=== PATIENT | male | born 1995 | race Caucasian/White ===

== ENCOUNTER 2020-01-20 12:56 | Observation (INO) | payer BC ==
[2020-01-20] MEDS ORDERED: Zofran 4 MG/2 ML VIAL IV ONE (13:29)
[2020-01-20] MEDS ORDERED: PROTONIX 40 MG IV IV ONE ×2 (13:29→13:42)
[2020-01-20] MEDS ORDERED: Sodium Chloride 0.9% 1000 ML 1,000 ML IV STA (13:29)
[2020-01-20] MEDS ORDERED: Hydromorphone 1 mg/ml Ampule IV ONE ×2 (13:29→15:18)
[2020-01-20] MEDS ORDERED: Hydromorphone 1 mg/ml Ampule ONE ×2 (13:42→15:24)
[2020-01-20] MEDS ORDERED: Zofran 4 MG/2 ML VIAL ONE ×2 (13:42→19:37)
[2020-01-20] MEDS ORDERED: Sodium Chloride 0.9% 1000 ML 1,000 ML ONE (13:43)
[2020-01-20 13:45] LABS: Absolute Neutrophil Ct (ANC) 12.05 (1.4-6.9); BASOPHIL % 0.2 % (0.0-0.4); Basophil (Absolute #) 0.04 (0-0.4); Eosinophil % 8.1 % (0.00-5.0); Hematocrit 45.3 % (42-50); Hemoglobin 15.6 gm/dl (12.5-18.0); Lymphocyte (Absolute #) 1.36 (1.0-4.6); Lymphocytes % 8.5 % (24.0-44.0); Mean Cell Volume 88.6 fl (78-100); Mean Corpuscular Hemoglobin 30.5 pg (26-32); Mean Corpuscular Hgb Concent. 34.4 g/dl (32-36); Mean Platelet Volume 9.7 fl (7.5-11.0); Monocyte (Absolute #) 1.28 (0.0-1.3); Neutrophil % 75.2 % (36.0-66.0); Platelet Count 239 K/mm3 (150-450); Red Blood Count 5.11 M/mm3 (4.1-5.6); Red Cell Distribution Width 12.9 % (11.5-14.0)
[2020-01-20 13:57] LABS: ALBUMIN 4.5 g/dL (3.5-5.0); ALKALINE PHOSPHATASE 85 U/L (38-126); AMYLASE 70 U/L (30-110); ANION GAP 12.1 MEQ/L (5-15); BLOOD UREA NITROGEN 13 mg/dL (9-20); CHLORIDE 103 mmol/L (98-107); Calcium 9.5 mg/dL (8.4-10.2); Carbon Dioxide 27 mmol/L (22-30); Creatinine 1 0.77 mg/dL (0.66-1.25); Glucose 108 mg/dL (74-106); LIPASE 18 U/L (23-300); Potassium 4.3 mmol/L (3.5-5.1); SGOT/AST 25 U/L (17-59); SGPT/ALT 28 U/L (0-50); SODIUM 138 mmol/L (137-145); Total Protein 8.2 g/dL (6.3-8.2)
[2020-01-20 14:01] LABS: Appearance CLEAR (CLEAR); Bilirubin NEGATIVE (NEGATIVE); Blood NEGATIVE Ery/ul (0-5); Glucose NEGATIVE (NEGATIVE); Ketones NEGATIVE (NEGATIVE); Leukocyte Esterase NEGATIVE (NEGATIVE); Mucus SLIGHT /HPF (NEGATIVE); Nitrite NEGATIVE (NEGATIVE); Protein,Urine Dip NEGATIVE (Negative); Specific Gravity 1.021 (1.005-1.025); Urobilinogen NEGATIVE mg/dL (0-1)
--- NOTE | 2020-01-20 14:16 | XRAY ---
Indication: Chest pain. Comparison: None Portable apical lordotic chest again demonstrates normal heart, lungs, and bony thorax.
--- NOTE | 2020-01-20 15:12 | XRAY ---
Indication: Periumbilical pain. Multiple contiguous axial images obtained through the abdomen and pelvis using 80 cc Isovue 370 contrast only. Comparison: None Lung bases are clear. Heart is not enlarged. Stomach is distended with food/fluid. Noncontrasted stomach and bowel loops appear nonobstructed. Abnormal enlarged appendix up to 14 mm diameter with periappendiceal stranding and tiny free fluid favoring acute appendicitis. There is a 9 mm appendicolith near the base of the appendix. No free air. Remaining liver, gallbladder, pancreas, spleen, adrenal glands, kidneys, ureters, bladder, and aorta appear unremarkable. No pathologic retroperitoneal lymphadenopathy. Osseous structures intact. Impression: CT findings as detailed favoring acute appendicitis with appendicolith.
[2020-01-20] MEDS ORDERED: MEFOXIN 1 Gm/ D5W 50 Ml** 1 G/50 ML ML IV STA (15:47)
[2020-01-20] MEDS ORDERED: Hydromorphone 1 mg/ml Ampule IV PRN (16:06)
--- NOTE | 2020-01-20 16:06 | ERPHSYRPT ---
- History of Present Illness Patient Subjective Stated Complaint: " My right side of belly has been hurting so bad since 0700 this morning, it's a sharp stabbing pain and radiates down into my abdomen ". Triage Nursing Assessment: Pt presents to ER with complaints of severe Right sided abdominal pain, mostly in the mid section but radiates to RLQ. Pt denies nausea, states did make himself vomit earlier to try to see if that would help with the pain. He states it didn't help. Pt is alert and oriented x 3. Appears in obvious distress. Pt skin is pink, warm, and dry. Pupils PERRL. Lungs clear and equal throughout. Denies shortness of breath or cough. Abd very tender upon examination, positive mcburneys point. Very tender. MD notified. Denies constipation/diarrhea. Denies painful urination. States pain started suddenly this morning at approx 7am. Physician History: Patient is a 24-year-old male who awoke this morning at 7 AM with right lower quadrant abdominal pain this has persisted and gotten worse it hurts with movement he denies any fever chills sweats he has vomited once. Timing/Duration: today Activities at Onset: none Quality: stabbing Abdominal Pain Onset Location: RLQ Severity of Pain-Max: moderate Severity of Pain-Current: moderate Modifying Factors: Improves With: coughing, movement Associated Symptoms: nausea, vomiting Previous symptoms: no prior history Allergies/Adverse Reactions: Penicillins Allergy (Severe, Verified 01/20/20 13:23) Hx Tetanus, Diphtheria Vaccination/Date Given: Yes Hx Influenza Vaccination/Date Given: Yes Hx Pneumococcal Vaccination/Date Given: No Travel Risk - International Travel Have you traveled outside of the country in past 3 weeks: No - Coronavirus Screening Are you exhibiting any of the following symptoms?: No Close contact with a COVID-19 positive Pt in past 14-21 Days: No - Review of Systems Constitutional: No Fever, No Chills Eyes: No Symptoms Ears, Nose, & Throat: No Symptoms Respiratory: No Cough, No Dyspnea Cardiac: No Chest Pain, No Edema, No Syncope Abdominal/Gastrointestinal: No Abdominal Pain, No Nausea, No Vomiting, No Diarrhea Genitourinary Symptoms: No Dysuria Musculoskeletal: No Back Pain, No Neck Pain Skin: No Rash Neurological: No Dizziness, No Focal Weakness, No Sensory Changes Psychological: No Symptoms Endocrine: No Symptoms All Other Systems: Reviewed and Negative - Past Medical History Pertinent Past Medical History: No - Past Surgical History Past Surgical History: Yes Gastrointestinal: Hernia Repair - Social History Smoking Status: Never smoker Exposure to second hand smoke: No Drug Use: none Patient Lives Alone: Yes - Nursing Vital Signs Nursing Vital Signs: Initial Vital Signs Temperature 97.8 F 01/20/20 13:22 Pulse Rate 77 01/20/20 13:22 Respiratory Rate 20 01/20/20 13:22 O2 Sat by Pulse Oximetry 99 01/20/20 13:22 Pain Scale Pain Intensity 10 - Physical Exam General Appearance: mild distress, alert Eye Exam: PERRL/EOMI, eyes nml inspection Ears, Nose, Throat Exam: normal ENT inspection, pharynx normal, moist mucous membranes Neck Exam: normal inspection, non-tender, supple, full range of motion Respiratory Exam: normal breath sounds, lungs clear, No respiratory distress Cardiovascular Exam: regular rate/rhythm, normal heart sounds Gastrointestinal/Abdomen Exam: tenderness, mass, guarding, rebound Back Exam: normal inspection, normal range of motion, No CVA tenderness, No vertebral tenderness Extremity Exam: normal inspection, normal range of motion, pelvis stable Neurologic Exam: alert, oriented x 3, cooperative, normal mood/affect, nml cerebellar function, sensation nml, No motor deficits Skin Exam: normal color, warm, dry SpO2: 96 - Course Nursing assessment & vital signs reviewed: Yes - CT Exams Abdomen/Pelvis CT Interpretation: Other (Consistent with appendicitis) Ordered Tests: Active Orders 24 hr Category Date Time Status IV Insertion STAT Care 01/20/20 13:29 Active ABDOMEN AND PELVIS W CONTRAST [CT] Stat Exams 01/20/20 13:30 Completed CHEST 1 VIEW (PORTABLE) Stat Exams 01/20/20 14:08 Completed AMYLASE Stat Lab 01/20/20 13:30 Completed CBC W DIFF Stat Lab 01/20/20 13:30 Completed CMP Stat Lab 01/20/20 13:30 Completed LIPASE Stat Lab 01/20/20 13:30 Completed Lactic Acid Stat Lab 01/20/20 13:29 Completed UA W/RFX UR CULTURE Stat Lab 01/20/20 Completed Medication Summary Generic Name Dose Route Start Last Admin Trade Name Freq PRN Reason Stop Dose Admin Cefoxitin Sodium 1 g in 50 mls @ 100 mls/hr 01/20/20 15:47 Mefoxin 1 Gm/ D5w 50 Ml IV 01/20/20 16:16 STAT STA Discontinued Medications Generic Name Dose Route Start Last Admin Trade Name Concepcion PRN Reason Stop Dose Admin Hydromorphone HCl 1 mg 01/20/20 13:29 01/20/20 13:48 Hydromorphone 1 Mg/Ml Ampule IV 01/20/20 13:30 1 mg STAT ONE Administration Hydromorphone HCl Confirm 01/20/20 13:42 Hydromorphone 1 Mg/Ml Ampule Administered 01/20/20 13:43 Dose 1 mg .ROUTE .STK-MED ONE Hydromorphone HCl 1 mg 01/20/20 15:18 01/20/20 15:27 Hydromorphone 1 Mg/Ml Ampule IV 01/20/20 15:19 1 mg STAT ONE Administration Hydromorphone HCl Confirm 01/20/20 15:24 Hydromorphone 1 Mg/Ml Ampule Administered 01/20/20 15:25 Dose 1 mg .ROUTE .STK-MED ONE Sodium Chloride 1,000 mls @ 999 mls/hr 01/20/20 13:29 01/20/20 15:01 Sodium Chloride 0.9% 1000 Ml IV 01/20/20 14:29 Infused .Q1H1M STA Infusion Sodium Chloride Confirm 01/20/20 13:43 Sodium Chloride 0.9% 1000 Ml Administered 01/20/20 13:44 Dose 1,000 mls @ ud .ROUTE .STK-MED ONE Ondansetron HCl 4 mg 01/20/20 13:29 01/20/20 13:48 Zofran 4 Mg/2 Ml Vial IV 01/20/20 13:30 4 mg STAT ONE Administration Ondansetron HCl Confirm 01/20/20 13:42 Zofran 4 Mg/2 Ml Vial Administered 01/20/20 13:43 Dose 4 mg .ROUTE .STK-MED ONE Pantoprazole Sodium 40 mg 01/20/20 13:29 01/20/20 13:48 Protonix 40 Mg Iv IV 01/20/20 13:30 40 mg STAT ONE Administration Pantoprazole Sodium Confirm 01/20/20 13:42 Protonix 40 Mg Iv Administered 01/20/20 13:43 Dose 40 mg IV .STK-MED ONE Lab/Rad Data: Laboratory Result Diagrams 01/20/20 13:30 01/20/20 13:30 Laboratory Results 01/20/20 01/20/20 01/20/20 Range/Units Unknown 13:30 13:30 WBC 16.0 H (4.0-10.5) K/mm3 RBC 5.11 (4.1-5.6) M/mm3 Hgb 15.6 (12.5-18.0) gm/dl Hct 45.3 (42-50) % MCV 88.6 (78-100) fl MCH 30.5 (26-32) pg MCHC 34.4 (32-36) g/dl RDW 12.9 (11.5-14.0) % Plt Count 239 (150-450) K/mm3 MPV 9.7 (7.5-11.0) fl Gran % 75.2 H (36.0-66.0) % Eos # (Auto) 1.30 H (0-0.5) Absolute Lymphs (auto) 1.36 (1.0-4.6) Absolute Monos (auto) 1.28 (0.0-1.3) Lymphocytes % 8.5 L (24.0-44.0) % Monocytes % 8.0 (0.0-12.0) % Eosinophils % 8.1 H (0.00-5.0) % Basophils % 0.2 (0.0-0.4) % Absolute Granulocytes 12.05 H (1.4-6.9) Basophils # 0.04 (0-0.4) Sodium 138 (137-145) mmol/L Potassium 4.3 (3.5-5.1) mmol/L Chloride 103 (98-107) mmol/L Carbon Dioxide 27 (22-30) mmol/L Anion Gap 12.1 (5-15) MEQ/L BUN 13 (9-20) mg/dL Creatinine 0.77 (0.66-1.25) mg/dL Estimated GFR > 60.0 ML/MIN Glucose 108 H (74-106) mg/dL Lactic Acid (0.4-2.0) Calcium 9.5 (8.4-10.2) mg/dL Total Bilirubin 1.30 (0.2-1.3) mg/dL AST 25 (17-59) U/L ALT 28 (0-50) U/L Alkaline Phosphatase 85 (38-126) U/L Serum Total Protein 8.2 (6.3-8.2) g/dL Albumin 4.5 (3.5-5.0) g/dL Amylase 70 (30-110) U/L Lipase 18 L (23-300) U/L Urine Color YELLOW (YELLOW) Urine Appearance CLEAR (CLEAR) Urine pH 6.0 (5-6) Ur Specific Sanderson 1.021 (1.005-1.025) Urine Protein NEGATIVE (Negative) Urine Ketones NEGATIVE (NEGATIVE) Urine Blood NEGATIVE (0-5) Michel/ul Urine Nitrite NEGATIVE (NEGATIVE) Urine Bilirubin NEGATIVE (NEGATIVE) Urine Urobilinogen NEGATIVE (0-1) mg/dL Ur Leukocyte Esterase NEGATIVE (NEGATIVE) Urine WBC (Auto) NONE (0-5) /HPF Urine RBC (Auto) NONE (0-2) /HPF U Epithel Cells (Auto) NONE (FEW) /HPF Urine Bacteria (Auto) NONE (NEGATIVE) /HPF Urine Mucus (Auto) SLIGHT (NEGATIVE) /HPF Urine Culture Reflexed NO (NO) Urine Glucose NEGATIVE (NEGATIVE) mg/dL 01/20/20 Range/Units 13:29 WBC (4.0-10.5) K/mm3 RBC (4.1-5.6) M/mm3 Hgb (12.5-18.0) gm/dl Hct (42-50) % MCV (78-100) fl MCH (26-32) pg MCHC (32-36) g/dl RDW (11.5-14.0) % Plt Count (150-450) K/mm3 MPV (7.5-11.0) fl Gran % (36.0-66.0) % Eos # (Auto) (0-0.5) Absolute Lymphs (auto) (1.0-4.6) Absolute Monos (auto) (0.0-1.3) Lymphocytes % (24.0-44.0) % Monocytes % (0.0-12.0) % Eosinophils % (0.00-5.0) % Basophils % (0.0-0.4) % Absolute Granulocytes (1.4-6.9) Basophils # (0-0.4) Sodium (137-145) mmol/L Potassium (3.5-5.1) mmol/L Chloride (98-107) mmol/L Carbon Dioxide (22-30) mmol/L Anion Gap (5-15) MEQ/L BUN (9-20) mg/dL Creatinine (0.66-1.25) mg/dL Estimated GFR ML/MIN Glucose (74-106) mg/dL Lactic Acid 1.4 (0.4-2.0) Calcium (8.4-10.2) mg/dL Total Bilirubin (0.2-1.3) mg/dL AST (17-59) U/L ALT (0-50) U/L Alkaline Phosphatase (38-126) U/L Serum Total Protein (6.3-8.2) g/dL Albumin (3.5-5.0) g/dL Amylase (30-110) U/L Lipase (23-300) U/L Urine Color (YELLOW) Urine Appearance (CLEAR) Urine pH (5-6) Ur Specific Sanderson (1.005-1.025) Urine Protein (Negative) Urine Ketones (NEGATIVE) Urine Blood (0-5) Michel/ul Urine Nitrite (NEGATIVE) Urine Bilirubin (NEGATIVE) Urine Urobilinogen (0-1) mg/dL Ur Leukocyte Esterase (NEGATIVE) Urine WBC (Auto) (0-5) /HPF Urine RBC (Auto) (0-2) /HPF U Epithel Cells (Auto) (FEW) /HPF Urine Bacteria (Auto) (NEGATIVE) /HPF Urine Mucus (Auto) (NEGATIVE) /HPF Urine Culture Reflexed (NO) Urine Glucose (NEGATIVE) mg/dL - Progress Progress: unchanged - Departure Departure Disposition: Observation Clinical Impression: Appendicitis Condition: Stable Critical Care Time: No Referrals: LISA NAIK [Primary Care Provider] -
[2020-01-20] MEDS: Sodium Chloride 0.9% 1000 ML 1,000 ML IV SCH ×2 (16:37→22:20)
[2020-01-20] MEDS ORDERED: Lactated Ringers 1,000 ML IV ONE ×3 (18:18→21:19)
[2020-01-20] MEDS ORDERED: Lactated Ringers 1,000 ML IV SCH (18:30)
--- NOTE | 2020-01-20 19:28 | PCM.HP ---
History of Present Illness - Chief Complaint Chief Complaint: appendicitis History of Present Illness: Hx per chart review and d/w patient. acute rlq abdominal pains tarting at 7am this am. constant. sharp severe. nothing like this before. "Patient Subjective Stated Complaint: " My right side of belly has been hurting so bad since 0700 this morning, it's a sharp stabbing pain and radiates down into my abdomen ". Triage Nursing Assessment: Pt presents to ER with complaints of severe Right sided abdominal pain, mostly in the mid section but radiates to RLQ. Pt denies nausea, states did make himself vomit earlier to try to see if that would help with the pain. He states it didn't help. Pt is alert and oriented x 3. Appears in obvious distress. Pt skin is pink, warm, and dry. Pupils PERRL. Lungs clear and equal throughout. Denies shortness of breath or cough. Abd very tender upon examination, positive mcburneys point. Very tender. MD notified. Denies constipation/diarrhea. Denies painful urination. States pain started suddenly this morning at approx 7am. Physician History: Patient is a 24-year-old male who awoke this morning at 7 AM with right lower quadrant abdominal pain this has persisted and gotten worse it hurts with movement he denies any fever chills sweats he has vomited once. Timing/Duration: today Activities at Onset: none Quality: stabbing Abdominal Pain Onset Location: RLQ Severity of Pain-Max: moderate Severity of Pain-Current: moderate Modifying Factors: Improves With: coughing, movement Associated Symptoms: nausea, vomiting Previous symptoms: no prior history Allergies/Adverse Reactions: Penicillins Allergy (Severe, Verified 01/20/20 13:23) Hx Tetanus, Diphtheria Vaccination/Date Given: Yes Hx Influenza Vaccination/Date Given: Yes Hx Pneumococcal Vaccination/Date Given: No Travel Risk - International Travel Have you traveled outside of the country in past 3 weeks: No - Coronavirus Screening Are you exhibiting any of the following symptoms?: No Close contact with a COVID-19 positive Pt in past 14-21 Days: No - Review of Systems Constitutional: No Fever, No Chills Eyes: No Symptoms Ears, Nose, & Throat: No Symptoms Respiratory: No Cough, No Dyspnea Cardiac: No Chest Pain, No Edema, No Syncope Abdominal/Gastrointestinal: No Abdominal Pain, No Nausea, No Vomiting, No Diarrhea Genitourinary Symptoms: No Dysuria Musculoskeletal: No Back Pain, No Neck Pain Skin: No Rash Neurological: No Dizziness, No Focal Weakness, No Sensory Changes Psychological: No Symptoms Endocrine: No Symptoms All Other Systems: Reviewed and Negative - Past Medical History Pertinent Past Medical History: No - Past Surgical History Past Surgical History: Yes Gastrointestinal: Hernia Repair - Social History Smoking Status: Never smoker Exposure to second hand smoke: No Drug Use: none Patient Lives Alone: Yes " Medications & Allergies Home Medications: Home Medication List Hydrocodone/APAP 5-325 Tab^^^ [Isabella 5-325 Tablet^^^] 1 tab PO Q6HPRN PRN MDD 6 01/20/20 [History Confirmed 01/20/20] Allergies/Adverse Reactions: Allergies Allergy/AdvReac Type Severity Reaction Status Date / Time Penicillins Allergy Severe Verified 01/20/20 13:23 - Past Medical History Past Medical History: No - Past Surgical History Past Surgical History: Yes GI Surgical History: Hernia Repair - Social History Smoking Status: Never smoker Exposure to second hand smoke: Yes Alcohol: None Drug Use: none - Physical Exam Vital Signs: Vital Signs - 24 hr Temp Pulse Resp BP BP Pulse Ox 01/20/20 18:35 103.4 F 133/74 01/20/20 18:16 99.8 F 118 H 24 133/74 01/20/20 17:00 99.8 F 118 H 24 133/74 01/20/20 16:30 89 22 136/72 99 01/20/20 16:05 96 01/20/20 14:02 69 18 147/82 96 01/20/20 13:22 97.8 F 77 20 99 General Appearance: no apparent distress, No mild distress, No alert Neurologic Exam: alert, oriented x 3 Eye Exam: eyes nml inspection, No scleral icterus Ears, Nose, Throat Exam: moist mucous membranes Neck Exam: normal inspection Respiratory Exam: No respiratory distress, No accessory muscle use Cardiovascular Exam: regular rate/rhythm, No capillary refill <2 sec Gastrointestinal/Abdomen Exam: soft, tenderness (ttp rlq with localized guarding and rebound.), No mass, No hepatomegaly, No organomegaly Rectal Exam: not done Extremity Exam: normal inspection Skin Exam: normal color, warm, diaphoresis Results - Labs Lab/Micro Results: Lab Results-Last 24 Hours 01/20/20 01/20/20 01/20/20 Range/Units 13:29 13:30 13:30 WBC 16.0 H (4.0-10.5) K/mm3 RBC 5.11 (4.1-5.6) M/mm3 Hgb 15.6 (12.5-18.0) gm/dl Hct 45.3 (42-50) % MCV 88.6 (78-100) fl MCH 30.5 (26-32) pg MCHC 34.4 (32-36) g/dl RDW 12.9 (11.5-14.0) % Plt Count 239 (150-450) K/mm3 MPV 9.7 (7.5-11.0) fl Gran % 75.2 H (36.0-66.0) % Eos # (Auto) 1.30 H (0-0.5) Absolute Lymphs (auto) 1.36 (1.0-4.6) Absolute Monos (auto) 1.28 (0.0-1.3) Lymphocytes % 8.5 L (24.0-44.0) % Monocytes % 8.0 (0.0-12.0) % Eosinophils % 8.1 H (0.00-5.0) % Basophils % 0.2 (0.0-0.4) % Absolute Granulocytes 12.05 H (1.4-6.9) Basophils # 0.04 (0-0.4) Sodium 138 (137-145) mmol/L Potassium 4.3 (3.5-5.1) mmol/L Chloride 103 (98-107) mmol/L Carbon Dioxide 27 (22-30) mmol/L Anion Gap 12.1 (5-15) MEQ/L BUN 13 (9-20) mg/dL Creatinine 0.77 (0.66-1.25) mg/dL Estimated GFR > 60.0 ML/MIN Glucose 108 H (74-106) mg/dL Lactic Acid 1.4 (0.4-2.0) Calcium 9.5 (8.4-10.2) mg/dL Total Bilirubin 1.30 (0.2-1.3) mg/dL AST 25 (17-59) U/L ALT 28 (0-50) U/L Alkaline Phosphatase 85 (38-126) U/L Serum Total Protein 8.2 (6.3-8.2) g/dL Albumin 4.5 (3.5-5.0) g/dL Amylase 70 (30-110) U/L Lipase 18 L (23-300) U/L Urine Color (YELLOW) Urine Appearance (CLEAR) Urine pH (5-6) Ur Specific Erhard (1.005-1.025) Urine Protein (Negative) Urine Ketones (NEGATIVE) Urine Blood (0-5) Michel/ul Urine Nitrite (NEGATIVE) Urine Bilirubin (NEGATIVE) Urine Urobilinogen (0-1) mg/dL Ur Leukocyte Esterase (NEGATIVE) Urine WBC (Auto) (0-5) /HPF Urine RBC (Auto) (0-2) /HPF U Epithel Cells (Auto) (FEW) /HPF Urine Bacteria (Auto) (NEGATIVE) /HPF Urine Mucus (Auto) (NEGATIVE) /HPF Urine Culture Reflexed (NO) Urine Glucose (NEGATIVE) mg/dL 01/20/20 Range/Units Unknown WBC (4.0-10.5) K/mm3 RBC (4.1-5.6) M/mm3 Hgb (12.5-18.0) gm/dl Hct (42-50) % MCV (78-100) fl MCH (26-32) pg MCHC (32-36) g/dl RDW (11.5-14.0) % Plt Count (150-450) K/mm3 MPV (7.5-11.0) fl Gran % (36.0-66.0) % Eos # (Auto) (0-0.5) Absolute Lymphs (auto) (1.0-4.6) Absolute Monos (auto) (0.0-1.3) Lymphocytes % (24.0-44.0) % Monocytes % (0.0-12.0) % Eosinophils % (0.00-5.0) % Basophils % (0.0-0.4) % Absolute Granulocytes (1.4-6.9) Basophils # (0-0.4) Sodium (137-145) mmol/L Potassium (3.5-5.1) mmol/L Chloride (98-107) mmol/L Carbon Dioxide (22-30) mmol/L Anion Gap (5-15) MEQ/L BUN (9-20) mg/dL Creatinine (0.66-1.25) mg/dL Estimated GFR ML/MIN Glucose (74-106) mg/dL Lactic Acid (0.4-2.0) Calcium (8.4-10.2) mg/dL Total Bilirubin (0.2-1.3) mg/dL AST (17-59) U/L ALT (0-50) U/L Alkaline Phosphatase (38-126) U/L Serum Total Protein (6.3-8.2) g/dL Albumin (3.5-5.0) g/dL Amylase (30-110) U/L Lipase (23-300) U/L Urine Color YELLOW (YELLOW) Urine Appearance CLEAR (CLEAR) Urine pH 6.0 (5-6) Ur Specific Erhard 1.021 (1.005-1.025) Urine Protein NEGATIVE (Negative) Urine Ketones NEGATIVE (NEGATIVE) Urine Blood NEGATIVE (0-5) Michel/ul Urine Nitrite NEGATIVE (NEGATIVE) Urine Bilirubin NEGATIVE (NEGATIVE) Urine Urobilinogen NEGATIVE (0-1) mg/dL Ur Leukocyte Esterase NEGATIVE (NEGATIVE) Urine WBC (Auto) NONE (0-5) /HPF Urine RBC (Auto) NONE (0-2) /HPF U Epithel Cells (Auto) NONE (FEW) /HPF Urine Bacteria (Auto) NONE (NEGATIVE) /HPF Urine Mucus (Auto) SLIGHT (NEGATIVE) /HPF Urine Culture Reflexed NO (NO) Urine Glucose NEGATIVE (NEGATIVE) mg/dL - Radiology Impressions Radiology Exams & Impressions: Radiology Procedures Category Date Time Status ABDOMEN AND PELVIS W CONTRAST [CT] Stat Exams 01/20/20 13:30 Completed CHEST 1 VIEW (PORTABLE) Stat Exams 01/20/20 14:08 Completed Assessment/Plan (1) Appendicitis Current Visit: Yes Status: Acute Assessment & Plan: 24yo male with classic history, exam, and ct confirmed appendicitis with fecalith. -to OR for appendectomy. Code(s): K37 - UNSPECIFIED APPENDICITIS
[2020-01-20] MEDS ORDERED: SUBLIMAZE 100 MCG/2 ML ONE (19:37)
[2020-01-20] MEDS ORDERED: TORAdol 30 mg Injection ONE (19:37)
[2020-01-20] MEDS ORDERED: DIPRIVAN 200 MG/20 ML IV ONE ×2 (19:37→19:42)
[2020-01-20] MEDS ORDERED: Phenergan 25 MG INJ IV PRN (19:42)
[2020-01-20] MEDS ORDERED: Colace 100 MG PO PRN (19:42)
[2020-01-20] MEDS ORDERED: Zofran 4 MG/2 ML VIAL IV PRN (19:42)
[2020-01-20] MEDS ORDERED: Quelicin Fliptop 200 MG/10 ML ONE (19:42)
[2020-01-20] MEDS ORDERED: BRIDION 200MG/2ML IV ONE (19:42)
[2020-01-20] MEDS ORDERED: Zemuron 100 MG/10 ML ONE ×2 (19:42→20:26)
[2020-01-20] MEDS ORDERED: FLAGYL 500 MG IVPB 500 MG/100 ML BAG IV ONE (19:44)
[2020-01-20] MEDS ORDERED: FEVERALL 325 MG ONE (19:44)
[2020-01-20] MEDS ORDERED: Sensorcaine 0.25% 10 ML ONE ×2 (20:12→21:09)
[2020-01-20] MEDS ORDERED: CLINDAMYCIN-D5W 900 MG/50 ML*** 900 MG/50 ML BAG IV ONE (20:14)
[2020-01-20] MEDS ORDERED: MEFOXIN 2 GM PREMIX** 2 GM/50 ML ML IV ONE (20:30)
[2020-01-20] MEDS ORDERED: LOPRESSOR 5 MG/5 ML INJECTION IV ONE (20:43)
[2020-01-20] MEDS: NORCO 5/325 MG PO PRN (22:56)
[2020-01-21] MEDS: Sodium Chloride 0.9% 1000 ML 1,000 ML IV SCH (06:19)
[2020-01-21] MEDS: NORCO 5/325 MG PO PRN (06:22)
[2020-01-21 07:58] VITALS: BP 101/53; PULSE 124; O2SAT 95
--- NOTE | 2020-01-21 09:33 | OP ---
SURGERY DATE/TIME: 01/20/20201950 PREOPERATIVE DIAGNOSIS: Acute appendicitis. POSTOPERATIVE DIAGNOSES: Acute appendicitis nonperforated. PROCEDURE: Laparoscopic appendectomy. SURGEON: Ramana Jones M.D. ANESTHESIA: General. ESTIMATED BLOOD LOSS: 50. CONDITION: Patient condition stable. COMPLICATIONS: None. SPECIMEN: Appendix. HISTORY: The patient is a 24 year-old male with one day of acute right lower quadrant abdominal pain. The emergency department evaluation showed pain in the right lower quadrant and CT confirmed appendicitis with appendicolith. The risk of infection, bleeding, conversion to open, hernia, injury to nearby structure and possible bowel resection was discussed with the patient and mother who elected to proceed with surgery. FINDINGS: Nonperforated appendicitis retrocecal. DESCRIPTION OF PROCEDURE: The patient was brought to the operating room. General anesthesia was induced. He was placed supine with the left arm tucked. SCD's were applied. He was routinely prepped and draped. He received preoperative antibiotic. Time out was performed. Veress needle inserted in left upper quadrant. Opening pressure was 3. Pneumoperitoneum was established. A 12 mm OptiView trocar placed infraumbilically. Two additional 5 mm trocars were placed in left lower quadrant and suprapubically. Marcaine had been injected at all of the port sites. Abdomen was surveyed. Terminal ileum was adherent in the right lower quadrant this had to be released laterally. The appendix was retrocecal. The white line was freed up laterally. The appendix was grossly engorged and quite long. The mesoappendix was taken with LigaSure down to a healthy base. It appeared that a third of the way down appendix there was probably a fecalith with distal dilation with relative sparing of the proximal third of the appendix. The base of the appendix was healthy and was taken with a white load HARDY stapler. It was placed in a specimen bag and removed through umbilical trocar. The right lower quadrant was irrigated and suctioned. The staple line looked healthy. There was excellent hemostasis. The abdomen was again surveyed. The entire abdomen was clear. The umbilical trocar site was closed with 0 Vicryl suture passer. The skin was closed with 4-0 Vicryl suture. Steri-Strips and sterile dressings were applied. All counts were correct. The patient tolerated the procedure well, was extubated and taken to recovery in stable condition.
[2020-01-21] MEDS ORDERED: ENOXAPARIN SODIUM SQ SCH (10:00)
== END 2020-01-21 10:57 | disposition home or self-care (01) ==
LOC: ED 12:56 → MED SURG 16:55
PROVIDERS: ADMIT Surgery; ATTEND Surgery
DX: K35.80 Unspecified acute appendicitis (principal)
CPT/HCPCS: 36000; 36415; 44970; 71045; 74177; 80053; 81001; 82150; 83605; 83690; 85025; 96360; 96365; 96374; 96375; 96376; 99285; G0378; 99140; J0330; J0694; J1170; J1885; J2405; J2704; J3010; A9270-GY